=== PATIENT | male | born 1960 ===

== ENCOUNTER → 2018-11-20 | Day surgery (SDC) | payer BC ==
[~2018-11-20] VITALS: Ht 182.9 cm; Wt 95.7 kg
[~2018-11-20] MED LIST: LIDOCAINE MPF 1% 5 ML VIAL ONE; LIDOCAINE/SOD BICARB 8.4% SYR ID ONE; NORMOSOL R SOLN(*) 1000 ML BAG 1,000 ML IV PRN; OLME1TAB69 PO; PROPOFOL EMUL(*) 10MG/ML 20 ML 60 ML ONE; ROSU10TA PO
[2018-11-20 09:10] VITALS: BP 132/101
--- NOTE | 2018-11-20 09:54 | NUR ---
0910- Pt stated that he drank 6oz of water at 0845 this am. SINDY RN notified anesthesia
[2018-11-20 11:25] VITALS: BP 136/86
[2018-11-20 11:51] VITALS: BP 116/86
[2018-11-20 11:55] VITALS: BP 121/94
[2018-11-20 11:56] VITALS: BP 127/89
== END ==
LOC: OR 00:11
PROVIDERS: ATTEND Family Medicine
DX: Z12.11 Encounter for screening for malignant neoplasm of colon (principal); K57.30 Diverticulosis of large intestine without perforation or abscess without bleeding
CPT/HCPCS: 00812; 45378; J2001; J2704